=== PATIENT | female | born 1985 | race Caucasian/White ===

== ENCOUNTER 2016-10-02 00:18 | Emergency (ER) | payer MEDICARE ==
[~2016-10-02] VITALS: Ht 157.5 cm; Wt 68.3 kg
[2016-10-02] MEDS ORDERED: VIST50CA PO (00:32)
[2016-10-02] MEDS ORDERED: REME30TA PO (00:32)
[2016-10-02] MEDS ORDERED: LEVO50TA4 PO (00:32)
[2016-10-02] MEDS ORDERED: PREG300 PO (00:32)
[2016-10-02] MEDS ORDERED: INH PO (00:32)
[2016-10-02] MEDS ORDERED: TRAZ100T4 PO (00:32)
[2016-10-02] MEDS ORDERED: LAMO100 PO (00:32)
[2016-10-02 00:33] VITALS: BP 129/80; PULSE 87; RESP 18; TEMP 97.9; O2SAT 97
[2016-10-02] MEDS ORDERED: CEPHALEXIN MONOHYDRATE 500 MG CAP PO ONE (01:15)
[2016-10-02] MEDS ORDERED: TETANUS/DIPHTHERIA TOXOID ADULT 0.5 ML VIAL IM ONE (01:15)
[2016-10-02] MEDS ORDERED: BACT800T5 PO (01:36)
[2016-10-02] MEDS ORDERED: CEPH-460 PO (01:36)
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
[2016-10-02 02:41] VITALS: BP 128/82; PULSE 78; RESP 18; O2SAT 97
[2016-10-03] MEDS ORDERED: ISON300T3 PO (23:08)
== END 2016-10-02 02:47 | disposition home or self-care (01) ==
LOC: PHEFT 00:18
DX: L03.115 Cellulitis of right lower limb (principal); B95.61 Methicillin susceptible Staphylococcus aureus infection as the cause of diseases classified elsewhere; B95.1 Streptococcus, group B, as the cause of diseases classified elsewhere; F17.200 Nicotine dependence, unspecified, uncomplicated; Z23 Encounter for immunization; Z87.39 Personal history of other diseases of the musculoskeletal system and connective tissue; Z87.09 Personal history of other diseases of the respiratory system; Z86.59 Personal history of other mental and behavioral disorders
CPT/HCPCS: 84703; 86403; 87070; 87186; 90471; 90714